=== PATIENT | male | born 1985 | race Caucasian/White ===

== ENCOUNTER 2018-01-12 11:34 | Emergency (ER) | payer MEDICAID ==
[2018-01-12 12:04] VITALS: TEMP 99.2
[2018-01-12 13:13] LABS: URINE BILIRUBIN NEGATIVE (NEGATIVE); URINE BLOOD 1+ (NEGATIVE); URINE CLARITY Clear (Clear); URINE COLOR Amber (YELLOW); URINE GLUCOSE (UA) NORMAL (Normal); URINE LEUKOCYTE ESTERASE NEG Leu/uL (Negative); URINE PROTEIN 1+ mg/dL (NEGATIVE); URINE UROBILINOGEN NORMAL mg/dL (0.2-1.0)
[2018-01-12] MEDS ORDERED: Sodium Chloride 0.9% 1,000 ML IV ONE (13:18)
[2018-01-12 13:41] LABS: BASO # 0.1 K/uL (0.0-0.2); BASO % 0.6 % (0.0-2.0); EOS % 0.2 % (0.0-4.0); HEMOGLOBIN 17.3 g/dL (12.0-18.0); LYMPH # 1.5 K/uL (1.0-4.3); LYMPH % 14.7 % (20.0-40.0); MEAN CELL VOLUME 88.7 fL (80.0-94.0); MEAN CORPUSCULAR HEMOGLOBIN 30.9 pg (27.0-31.0); MEAN CORPUSCULAR HGB CONC 34.9 g/dL (33.0-37.0); MONO # 1.3 K/uL (0.0-0.8); MONO % 12.8 % (0.0-10.0); NEUT # 7.6 K/uL (1.8-7.0); NEUT % 71.7 % (50.0-75.0); NRBC % 0.1 % (0.0-2.0); RBC 5.58 Mil/uL (4.40-5.90); RED CELL DISTRIBUTION WIDTH 13.1 % (11.5-14.5); WHITE BLOOD COUNT 10.5 K/uL (4.8-10.8)
[2018-01-12 14:24] LABS: ALB/GLOB RATIO 1.4 (1.0-2.1); ALBUMIN 4.8 g/dL (3.5-5.0); ALT/SGPT 31 U/L (21-72); AST/SGOT 27 U/L (17-59); BLOOD UREA NITROGEN 9 mg/dL (9-20); GFR NON-AFRICAN AMERICAN > 60; LIPASE 27 U/L (23-300)
[2018-01-12] MEDS ORDERED: Iodixanol 320 MG/ML 100 ML BOTTLE IV ONE (15:04)
--- NOTE | 2018-01-12 15:48 | CT ---
Date of service: 01/12/2018 PROCEDURE: CT Abdomen and Pelvis with contrast HISTORY: pain COMPARISON: None available TECHNIQUE: Contrast dose: 100 mL Visipaque 320 IV Radiation dose: Total exam DLP = 1200.39 mGy-cm. This CT exam was performed using one or more of the following dose reduction techniques: Automated exposure control, adjustment of the mA and/or kV according to patient size, and/or use of iterative reconstruction technique. FINDINGS: Motion artifact limits examination, particularly portions of the lower abdomen. LOWER THORAX: No visible consolidation, pleural effusion, or pneumothorax. LIVER: Unremarkable. GALLBLADDER AND BILE DUCTS: Unremarkable. PANCREAS: Unremarkable. SPLEEN: 17 mm probable splenule. Otherwise unremarkable. ADRENALS: Unremarkable. KIDNEYS AND URETERS: The kidneys enhance symmetrically. No hydronephrosis or obstructing calculus identified. VASCULATURE: No aortic aneurysm. No atherosclerotic calcification or mural plaque present. BOWEL: Stomach is nondistended. Lack of oral contrast limits evaluation for bowel pathology. Bowel loops appear within normal limits of caliber without evidence of obstruction. Incidental note is made of small bowel wall thickening which may be seen in the setting of enteritis. Correlate clinically. APPENDIX: The appendix appears within normal limits of caliber. No secondary signs of acute appendicitis. PERITONEUM: No significant free fluid. No definite free air. LYMPH NODES: Nonspecific bilateral inguinal adenopathy, sub cm in short axis. No bulky adenopathy identified. BLADDER: Thick-walled under distended urinary bladder. Urachal remnant. REPRODUCTIVE: Unremarkable. BONES: No acute osseous abnormality is detected. OTHER FINDINGS: None. IMPRESSION: Motion artifact limits evaluation. Incidental note is made of small bowel wall thickening which may be seen in the setting of enteritis. Correlate clinically. Thick-walled under distended urinary bladder. Urachal remnant. Patients with a urachal remnant are at increased risk for adenocarcinoma of the bladder.
--- NOTE | 2018-01-12 15:59 | C.PDOC ---
History Of Present Illness 32 y/o male presents to the ED complaining of lower abdominal pain associated with diarrhea that started last night. "My pelvis is swollen." He denies any fever, lymphadenopathy, nausea, vomiting, penile discharge, testicular pain, d ysuria, or urinary frequency. States It feels like a stomach virus. (+) Sick contacts in his children at home. Time Seen by Provider: 01/12/18 12:24 Chief Complaint (Nursing): Abdominal Pain History Per: Patient History/Exam Limitations: no limitations Onset/Duration Of Symptoms: Days (x1) Current Symptoms Are (Timing): Still Present Location Of Pain/Discomfort: Suprapubic Associated Symptoms: Diarrhea Past Medical History Reviewed: Historical Data, Nursing Documentation, Vital Signs Vital Signs: Last Vital Signs Temp 99.2 F 01/12/18 11:58 Pulse 98 H 01/12/18 11:58 Resp 20 01/12/18 11:58 BP 135/75 01/12/18 11:58 Pulse Ox 99 01/12/18 11:58 - Medical History PMH: No Chronic Diseases Surgical History: No Surg Hx Family History: States: No Known Family Hx - Social History Hx Tobacco Use: Yes Hx Alcohol Use: Yes Hx Substance Use: Yes - Immunization History Hx Influenza Vaccination: No Review Of Systems Constitutional: Negative for: Fever, Chills Respiratory: Negative for: Shortness of Breath Gastrointestinal: Positive for: Abdominal Pain, Diarrhea. Negative for: Nausea, Vomiting Genitourinary: Negative for: Dysuria, Frequency, Penile Discharge, Scrotal Pain Neurological: Negative for: Dizziness Physical Exam - Physical Exam Appears: Non-toxic, No Acute Distress Skin: Normal Color, Warm, Dry Head: Atraumatic, Normacephalic Eye(s): bilateral: Normal Inspection, EOMI Nose: Normal Oral Mucosa: Moist Neck: Normal ROM, Supple Chest: Symmetrical Cardiovascular: Rhythm Regular Respiratory: Normal Breath Sounds, No Rales, No Rhonchi, No Wheezing Gastrointestinal/Abdominal: Soft, Tenderness (Lower quadrant abdominal tenderness), No Guarding, No Rebound Back: No CVA Tenderness, No Vertebral Tenderness Extremity: Normal ROM Extremity: Bilateral: Atraumatic, Normal Color And Temperature, Normal ROM Neurological/Psych: Oriented x3, Normal Speech ED Course And Treatment - Laboratory Results Result Diagrams: 01/12/18 13:30 01/12/18 13:30 O2 Sat by Pulse Oximetry: 99 (RA) Pulse Ox Interpretation: Normal - CT Scan/US CT abd/pelvis Other Rad Studies (CT/US): Read By Radiologist, Radiology Report Reviewed CT/US Interpretation: Accession No. : [id number]. Patient Name / ID : MIGUEL PURVIS V / [id number]. Exam Date : 01/12/2018 15:12:04 ( Approved ). Study Comment : Sex / Age : M / 32Y. Creator : Steffanie Chris. Dictator : Evelyne Clayton MD. Flaker Tender : Bank Teller Machine Mechanic : Evelyne Clayton MD. Approver2 : Report Date : 01/12/2018 15:29:57. My Comment : . Date of service: 01/12/2018. PROCEDURE: CT Abdomen and Pelvis with contrast. HISTORY: pain. COMPARISON: None available. TECHNIQUE: Contrast dose: 100 mL Visipaque 320 IV. Radiation dose: Total exam DLP = 1200.39 mGy-cm. This CT exam was performed using one or more of the following dose reduction techniques: Automated exposure control, adjustment of the mA and/or kV according to patient size, and/or use of iterative reconstruction technique. FINDINGS: Motion artifact limits examination, particularly portions of the lower abdomen. LOWER THORAX: No visible consolidation, pleural effusion, or pneumothorax. LIVER: Unremarkable. GALLBLADDER AND BILE DUCTS: Unremarkable. PANCREAS: Unremarkable. SPLEEN: 17 mm probable splenule. Otherwise unremarkable. ADRENALS: Unremarkable. KIDNEYS AND URETERS: The kidneys enhance symmetrically. No hydronephrosis or obstructing calculus identified. VASCULA TURE: No aortic aneurysm. No atherosclerotic calcification or mural plaque present. BOWEL: Stomach is nondistended. Lack of oral contrast limits evaluation for bowel pathology. Bowel loops appear within normal limits of caliber without evidence of obstruction. Incidental note is made of small bowel wall thickening which may be seen in the setting of enteritis. Correlate clinically. APPENDIX: The appendix appears within normal limits of caliber. No secondary signs of acute appendicitis. PERITONEUM: No significant free fluid. No definite free air. LYMPH NODES: Nonspecific bilateral inguinal adenopathy, sub cm in short axis. No bulky adenopathy identified. BLADDER: Thick-walled un live distended urinary bladder. Urachal remnant. REPRODUCTIVE: Unremarkable. BONES: No acute osseous abnormality is detected. OTHER FINDINGS: None. IMPRESSION: Motion artifact limits evaluation. Incidental note is made of small bowel wall thickening which may be seen in the setting of enteritis. Correlate clinically. Thick-walled under distended urinary bladder. Urachal remnant. Patients with a urachal remnant are at increased risk for adenocarcinoma of the bladder. Progress Note: Blood work, urine, and GC/chlamydia sent to the lab. Patient given IVF hydration and 30mg Toradol. Awaiting CT abd/pelvis with IV contrast. On reevaluation, patient reports improvement in symptoms. Informed of CT findings, and provided with copy of results. Instructed patient on strict follow up with PMD and urology in 1-2 dyas. Case discussed with Dr Gudino, agreed upon plan and discharge. Reassessment Condition: Improved Disposition - Disposition Referrals: Jared Garcia MD [Staff Provider] - Disposition: HOME/ ROUTINE Disposition Time: 15:56 Condition: STABLE Additional Instructions: Follow up with your primary and urologist in 1-2 days. Return to ER if symptoms persist or worsen. Prescriptions: Atropine/Hyoscyamine [] 1 tab PO TID #15 tab Instructions: Viral Gastroenteritis, Adult (DC) Forms: [facility] (Monegasque) - Clinical Impression Clinical Impression: Abdominal pain - PA / BELLOWS CHARGER ASSEMBLER / Resident Statement MD/DO has reviewed & agrees with the documentation as recorded. - Scribe Statement The provider has reviewed the documentation as recorded by the Scribe (Inga Downing) All medical record entries made by the Scribe were at my direction and personally dictated by me. I have reviewed the chart and agree that the record accurately reflects my personal performance of the history, physical exam, medical decision making, and the department course for this patient. I have also personally directed, reviewed, and agree with the discharge instructions and disposition.
[2018-01-12 16:28] VITALS: BP 124/80; PULSE 75; RESP 18
[2018-01-12 17:58] VITALS: O2SAT 99
== END 2018-01-12 16:28 | disposition home or self-care (01) ==
LOC: C.ER 11:34
DX: R10.9 Unspecified abdominal pain (principal)
CPT/HCPCS: 74177; 80053; 81001; 83690; 85025; 87491; 87591; 96361; 96374; 99284; J7030; Q9967